=== PATIENT | male | born 1975 | race Caucasian/White ===

== ENCOUNTER 2018-02-08 18:41 | Emergency (ER) | payer BC ==
[~2018-02-08] VITALS: Ht 188 cm; Wt 76.7 kg
[~2018-02-08 18:41] MED LIST: NO HOME MEDS
[2018-02-08 18:48] VITALS: BP 127/87
[2018-02-08] MEDS ORDERED: PRED10TA PO (20:08)
[2018-02-08] MEDS ORDERED: methylPREDNISolone sod succ 125mg/2ml vial IV ONE (20:10)
== END 2018-02-08 20:33 | disposition home or self-care (01) ==
LOC: ER 20:24
DX: S60.561A Insect bite (nonvenomous) of right hand, initial encounter (principal); W57.XXXA Bitten or stung by nonvenomous insect and other nonvenomous arthropods, initial encounter; Y93.89 Activity, other specified; Y92.89 Other specified places as the place of occurrence of the external cause; Y99.8 Other external cause status
CPT/HCPCS: 96374; 99284; J2930

== ENCOUNTER 2024-06-20 09:48 | Outpatient (CLI) | payer BC ==
[~2024-06-20 09:48] MED LIST changes: +PRED10TA PO
== END 2024-06-20 23:59 | disposition home or self-care (01) ==
LOC: MRI02 09:48
PROVIDERS: ATTEND Orthopaedic Surgery
DX: M19.011 Primary osteoarthritis, right shoulder (principal); M25.411 Effusion, right shoulder; M75.121 Complete rotator cuff tear or rupture of right shoulder, not specified as traumatic; M25.511 Pain in right shoulder
CPT/HCPCS: 73221

== ENCOUNTER 2025-04-11 17:30 | Inpatient (IN) | payer BC ==
[~2025-04-11] VITALS: Ht 188 cm; Wt 97.7 kg
[2025-04-11] MEDS: normal saline 1000ML IV soln IVB ONE (17:55)
[2025-04-11 17:57] LABS: MEAN PLATELET VOLUME 8.0 FL (7.4-10.4); RED CELL DISTRIBUTION WIDTH 13.4 % (11.5-14.5)
[2025-04-11] MEDS: metoprolol tartrate 1mg/ml inj IV SCH (17:59)
[2025-04-11] MEDS: MIDAZolam 5mg/ml 2ml vial IV ONE (18:02)
--- NOTE | 2025-04-11 18:03 | Physician Documentation ---
History of Present Illness General Chief Complaint: Seizure Stated Complaint: SEIZURE Time Seen by MD: 17:42 OK to notify your PCP?: No Source: patient, family, EMS, RN notes reviewed Mode of Arrival: EMS Exam Limitations: no limitations History of Present Illness Initial Comments 49-year-old male, with no significant past medical history, presents via EMS after a possible seizure, as well as rapid heart rate. Patient reportedly came home from work this afternoon and told his that he is was not feeling well so he lied down in bed. Patient then reportedly had an approximate 1 minute seizure and was incontinent of urine during this. He has no history of seizures in the past. EMS was called and upon their arrival they noted patient to be in atrial fibrillation with a RVR, with a rate in the 160s. Patient denies any chest pain or shortness of breath. He reportedly has a few alcoholic drinks daily, and had one drink prior to lying down this afternoon. He denies history of alcohol withdrawal. Medication Reconciliation Allergies: Coded Allergies: No Known Allergies (Unverified , 11/14/15) Scheduled Folic Acid* (Folic Acid*), 1 MG PO DAILY Magnesium Oxide (Magnesium), 400 MG PO BID Metoprolol Succinate (Metoprolol Succinate), 50 MG PO DAILY Multivitamin (Multivitamin), 1 TAB PO DAILY Potassium Chloride* (K-Dur*), 1 TAB PO DAILY Thiamine HCl (Thiamine HCl), 500 MG PO DAILY Miscellaneous Medications Home Med List (No Home Medications), (Reported) Discontinued Medications Prednisone (Prednisone), 0 PO DAILY Discontinued Reason: patient no longer taking Past Medical History Past Medical History: No Pertinent History Past Surgical History: orthopedic surgeries Alcohol Use: Heavy Drug Use: none Lives with: Spouse Lives In: Home Occupation: employed Review of Systems All Other Systems at this time: Reviewed and Negative ROS As stated above in the HPI, otherwise all systems are reviewed and negative. Physical Exam Physical Exam Vital Signs: RN Vital Signs have been reviewed: Yes, Temperature: 100.5, Source: Oral, Heart Rate: 156, Respiratory Rate: 22, BP: 121/81, Pulse Oximetry: 98, Weight: 91.000 Pulse Oximetry Reflects: adequate oxygenation Physical Exam VITALS: Reviewed and as above. GENERAL: Alert, mild distress. HEENT: Normocephalic, atraumatic, PERRL, EOMI, dry mucosa RESPIRATORY: Lungs clear, normal breath sounds, no respiratory distress. CHEST: No accessory muscle use, no retractions CV: Irregularly irregular rhythm, tachycardic, no edema, no murmur, No: JVD GI: Soft, non-tender, bowels sounds present, no rebound, guarding, or rigidity MUSCULOSKELETAL: No deformities, no edema SKIN: Pale, slightly diaphoretic. Warm and dry, no rash NEURO: Oriented x4, No motor or sensory deficit. Tremulous. PSYCH: Normal mood and affect, no agitation Progress Progress Note 1809: Care passed to oncoming physician, Dr. Young. Results/Orders Reviewed/noted all lab results: Yes Results/Orders Orders - OHKD BROWN MD Chest,Single View (04/11/25 17:56) Saline Lock (04/11/25 17:49) Monitor (04/11/25 17:49) Oxygen (04/11/25 17:49) Ct Head (04/11/25 18:23) Completed Orders - KD WATKINS MD Cbc/Diff (04/11/25 17:49) MG (04/11/25 17:49) PBNP (04/11/25 17:49) Chest,Single View (04/11/25 17:56) BMP (04/11/25 17:49) Hs Troponin I W Calculations (04/11/25 17:49) Hs Troponin I W Calculations (04/11/25 19:49) Hs Troponin I W Calculations (04/11/25 20:49) Procalcitonin (04/11/25 17:49) Metoprolol Tartrate Inj (Lopressor Iv) (04/11/25 17:50) Midazolam 5 Mg/Ml 2ml Inj (Versed 5 Mg/M (04/11/25 17:50) Normal Saline 1000ml (0.9% Sodium Chlori (04/11/25 17:50) Potassium Cl Sr Tablet (K-Dur Tablet) (04/11/25 18:22) Ct Head (04/11/25 18:23) Magnesium Sulf-Water 2g/50ml (Magnesium (04/11/25 18:30) Ethanol (04/11/25 17:34) Liver Panel (04/11/25 17:34) Hgb A1c (04/11/25 17:34) PHOS (04/11/25 17:34) Laboratory Tests Test 04/11/25 17:34 04/11/25 19:10 04/11/25 20:41 04/11/25 20:47 White Blood Count 5.8 Red Blood Count 3.74 L Hemoglobin 12.8 L Hematocrit 38.7 L Mean Corpuscular Volume 103.5 H Mean Corpuscular Hemoglobin 34.3 H Mean Corpuscular Hemoglobin Concent 33.1 Red Cell Distribution Width 13.4 Platelet Count 186 Mean Platelet Volume 8.0 Neutrophils (%) (Auto) 65.4 Lymphocytes (%) (Auto) 22.5 Monocytes (%) (Auto) 10.7 Eosinophils (%) (Auto) 0.1 Basophils (%) (Auto) 1.3 H Neutrophils # (Auto) 3.8 Lymphocytes # (Auto) 1.3 Monocytes # (Auto) 0.6 Eosinophils # (Auto) 0.0 Basophils # (Auto) 0.1 CBC Comment Prothrombin Time 11.1 INR International Normalized Ratio 1.1 Activated Partial Thromboplast Time 28 Coagulation Comments Sodium Level 142 Potassium Level 3.6 Chloride Level 103 Carbon Dioxide Level 13.7 *L Anion Gap 25 H Blood Urea Nitrogen 8 Creatinine 1.01 Estimated GFR/1.73 m2 78 BUN/Creatinine Ratio 7.9 L Glucose Level 123 H Hemoglobin A1c 5.2 Lactic Acid Level 13.2 *H Calcium Level 8.5 Phosphorus Level 4.3 Magnesium Level 1.6 Total Bilirubin 0.7 Direct Bilirubin 0.2 Aspartate Amino Transf (AST/SGOT) 98 H Alanine Aminotransferase (ALT/SGPT) 73 Alkaline Phosphatase 78 Troponin I High Sensitivity 18 35 45 Pro-B-Type Natriuretic Peptide 41 Total Protein 7.7 Albumin 4.2 Globulin 3.5 Albumin/Globulin Ratio 1.2 Procalcitonin < 0.05 Chemistry Comments Ethyl Alcohol Level 20 H Troponin I High Sens Percent Delta 94 28 Troponin I Hi Sens Absolute Change 17 10 Urine Specimen Description Voided Urine Color Yellow Urine Clarity Clear Urine pH 6.0 Urine Specific [place] 1.025 Urine Protein Trace Urine Glucose (UA) Negative Urine Ketones 15 H Urine Occult Blood Trace-intact Urine Nitrite Negative Urine Bilirubin Negative Urine Urobilinogen 0.2 Urine Leukocyte Esterase Negative Urine RBC 0-2 Urine WBC 0-4 Urine Squamous Epithelial Cells Few Urine Bacteria None seen Urine Mucus Few Urine Culture Indicated Not ind Volume Urine Centrifuged 10 ml Urine Comment Total Creatine Kinase 781 H Myoglobin 433 H Microbiology Date/Time Source Procedure Growth Status 04/11/25 19:13 Blood Hand Left Blood Culture - Final NO GROWTH AFTER 5 DAYS Complete Re-Evaluation Re-Evaluation : Re-Evaluation: Improved Progress Alcohol withdrawal seizures. CT scan of the head was obtained and reassuring no masses or bleeds. X-ray showed no infiltrates effusions or aspiration. Patient received metoprolol Versed and fluid boluses later potassium was ordered. Magnesium as well. Patient received additional 3 L of fluids without any urine output lactic acid came back super high at 13. Additional L bolus was given at that point in time patient is now alert able to take oral medications. Patient received aspirin additional dose of Cardizem heart rate is back into the 120s blood pressure has improved patient was started on a Cardizem drip. Patient is CBC is reassuring with some borderline anemia with a hemoglobin of 12 and hematocrit of 38 with a MCV of 103.5 consistent with chronic alcohol abuse. CO2 is 13.7 otherwise chemistries are within normal limits. Patient's initial lactic acid is 13.2nd lactic acid with 3 L has been transfused 4 L is in progress and repeat lactic acid is pending. Otherwise magnesium is at 1.6 in his has been supplemented with 2 g. LFTs troponins all within normal limits. Patient was then discussed with the hospitalist who kindly agreed to admit the patient. Repeat lactic acid 1.5 Continuous clamshell operator interpretation shows rapid AFib heart rate 120s, abnormal, my interpretation. Pulse oximetry monitor interpretation shows normal oxygenation at 98% room air, normal, my interpretation. EKG/XRAY/CT/US/VASC/MRI EKG : Additional Comment 6008: EKG interpreted by myself to show atrial fibrillation with RVR at a rate of 159bpm. LAD, nonspecific ST changes. Chest X-Ray : Additional Comments CHEST RADIOGRAPH Indication: CP Technique: Single frontal view of the chest was obtained Comparison: None FINDINGS: Lines and Tubes: None Lungs: No focal consolidation. [id number] elevation of the right hemidiaphragm. Pleura: No effusion. No pneumothorax. Cardiomediastinal contours: Unremarkable Bones: No acute osseous abnormality. IMPRESSION: No acute cardiopulmonary disease. Electronically Signed by:LUCRECIA MCDONALD DO Date & Time: 04/11/[address] : Interpreted By: both CT: head With Contrast?: No Impression CLINICAL HISTORY: seizure TECHNIQUE: Helical scanning was performed of the head from the skull base to the vertex. Multiplanar reconstructions were performed. This exam was performed according to our departmental dose optimization program. Up-to-date CT equipment and radiation dose reduction techniques are utilized as appropriate. CTDI 67.2 DLP 1263.7 COMPARISON: None FINDINGS: There is no evidence for acute intracranial hemorrhage, acute ischemic changes, mass, mass effect, or extra-axial fluid collection. There is no hydrocephalus or midline shift. There is no effacement of the cerebral sulci and basal subarachnoid cisterns. The montes-white matter differentiation is well maintained. The imaged paranasal sinuses demonstrate mile mucosal thickening. IMPRESSION: NO ACUTE INTRACRANIAL ABNORMALITY SEEN. Electronically Signed by:GISELA VINCENT MD Date & Time: 04/11/25 1914 Medical Decision Making Additional info obtained from: old records Findings The patient is a 49-year-old male who presents with a seizure and rapid atrial fibrillation the patient is a heavy drinker and appears to be in alcohol withdrawal, the patient was treated for alcohol withdrawal and he was also treated for rapid atrial fibrillation the patient was given rate control agents. And benzodiazepines. The patient has remained hemodynamically stable. The patient has required critical care time. The patient will be admitted to the hospitalist for further evaluation of the seizure and for treatment of the atrial fibrillation. The patient's clamshell operator was interpreted as rapid atrial fibrillation. The patient's pulse oximetry was interpreted as normal and adequate. Prior hospitalizations have been reviewed. Departure Admitted to Inpatient Unit: yes, to hospitalist Admission Level of Care: PCU with Tele Impression: Primary Impression: Seizure disorder Additional Impressions: Alcohol withdrawal syndrome Qualified Codes: F10.939 - Alcohol use, unspecified with withdrawal, unspecified Atrial fibrillation with rapid ventricular response New onset a-fib Lactic acidosis Condition: Critical Prescriptions Magnesium Oxide (MAGNESIUM) 400 Mg Magnesium Capsule 400 MG PO BID, #60 CAP Prov: CASSIDY MCMAHON MD 04/13/25 Potassium Chloride* (K-Dur*) 20 Meq Tab.prt.sr 1 TAB PO DAILY, #15 TAB Prov: CASSIDY MCMAHON MD 04/13/25 Multivitamin (Multivitamin) 1 Each Tablet 1 TAB PO DAILY for 30 Days, #30 TAB 0 Refills Prov: HARMONY FOY, RES 04/13/25 Thiamine HCl (Thiamine HCl) 500 Mg Tablet 500 MG PO DAILY for 30 Days, #30 TAB Prov: HARMONY FOY, RES 04/13/25 Folic Acid* (Folic Acid*) Y Tab 1 MG PO DAILY for 30 Days, #30 TAB Prov: HARMONY FOY, RES 04/13/25 Metoprolol Succinate (Metoprolol Succinate) 25 Mg Tab.sr.24h 50 MG PO DAILY for 30 Days, #60 TAB.SR Prov: HARMONY FOY, RES 04/13/25 Education Educated: Patient, Family Educated regarding: diagnosis, treatment Critical Care Note Total Time (mins): 45 Critical Care Note Critical Care Time: 45 minutes Treatments/Evaluations: Close monitoring and treatment of unstable vital signs, cardiorespiratory, and neurologic status, while maintaining tight balance of fluid, respiratory, and cardiac interventions. This time includes discussing the case with the patient and the patient's family. This time does not include all procedures stated elsewhere in this record. This time also includes reviewing old records, labs and radiological studies. This time includes examining and re- examining the patient. Additionally, this time also includes arranging care with admitting and consulting physicians. Signature Scribe Signature: Scribed for OhlfsKd MD by Daniel Berumen . 04/11/25 18:04 Attestation: The note accurately reflects work and decisions made by me.Gabriel Young MD 04/11/25 20:42 OHLKD DE MD Apr 11, 2025 18:03 DANIEL TREJO Apr 11, 2025 18:06 GABRIEL YOUNG MD Apr 11, 2025 20:51
[2025-04-11 18:20] LABS: CREATININE 1.01 MG/DL (0.60-1.10); PRO BRAIN NATRIURETIC PEPTIDE 41 PG/ML (0-125); eCRCL 99 ML/MIN; eGFR 78 ML/MIN
--- NOTE | 2025-04-11 18:26 | RADIOLOGY REPORT ---
CHEST RADIOGRAPH Indication: CP Technique: Single frontal view of the chest was obtained Comparison: None FINDINGS: Lines and Tubes: None Lungs: No focal consolidation. [id number] elevation of the right hemidiaphragm. Pleura: No effusion. No pneumothorax. Cardiomediastinal contours: Unremarkable Bones: No acute osseous abnormality. IMPRESSION: No acute cardiopulmonary disease.
[2025-04-11 18:29] LABS: TOTAL CARBON DIOXIDE 13.7 MMOL/L (24-32)
[2025-04-11 18:54] LABS: ETHANOL 20 MG/DL (<10)
--- NOTE | 2025-04-11 19:17 | RADIOLOGY REPORT ---
CLINICAL HISTORY: seizure TECHNIQUE: Helical scanning was performed of the head from the skull base to the vertex. Multiplanar reconstructions were performed. This exam was performed according to our departmental dose optimizat ion program. Up-to-date CT equipment and radiation dose reduction techniques are utilized as appropri ate. CTDI 67.2 DLP 1263.7 COMPARISON: None FINDINGS: There is no evidence for acute intracranial hemorrhage, acute ischemic changes, mass, mass effect, or extra-axial fluid collection. There is no hydrocephalus or midline shift. There is no effacement of the cerebral sulci and basal subarachnoid cisterns. The montes-white matter differentiation is well didier ntained. The imaged paranasal sinuses demonstrate mile mucosal thickening. IMPRESSION: NO ACUTE INTRACRANIAL ABNORMALITY SEEN.
[2025-04-11] MEDS: magnesium sulf-water 2g/50mL 50 ML IV ONE (20:11)
[2025-04-11] MEDS: normal saline 1000ml 3,000 ML IV ONE (20:15)
[2025-04-11] MEDS ORDERED: diltiazem-NS 100mg/100ml 100 ML IV PRN (20:45)
[2025-04-11] MEDS ORDERED: metoprolol tartrate 1mg/ml inj IV ONE (20:45)
[2025-04-11 20:58] LABS: APTT 28 SECONDS (22-32); INR 1.1 INR
[2025-04-11 21:08] LABS: NITRITES, URINE NEGATIVE (Neg); OCCULT BLOOD,URINE TRACE-INTACT (Neg)
[2025-04-11 21:09] LABS: LEUKOCYTE ESTERASE ,URINE NEGATIVE (Neg)
[2025-04-11 21:14] LABS: UA COLLECTION TYPE VOIDED
[2025-04-11 21:15] LABS: MUCUS STRANDS FEW /LPF (Neg); SQUAMOUS EPITHELIAL CELL,UR FEW /LPF (FEW)
[2025-04-11] MEDS ORDERED: sodium bicarbonate (8.4%) inj. 100 MEQ in dextrose 5%-water 1,000 ML IV SCH (21:20)
[2025-04-11] MEDS ORDERED: magnesium hydroxide 30ml (MOM) UD suspension PO PRN (21:25)
[2025-04-11] MEDS ORDERED: magnesium Cl slow-release 64mg tablet PO PRN (21:25)
[2025-04-11] MEDS ORDERED: dextrose 50%-water 50ml dispensing syringe IV PRN (21:25)
[2025-04-11] MEDS ORDERED: magnesium sulf-water 2g/50mL 50 ML IV PRN (21:25)
[2025-04-11] MEDS ORDERED: potassium Cl 40MEQ/1/2NS 520ml 520 ML IV PRN (21:25)
[2025-04-11] MEDS ORDERED: ondansetron/PF 4mg/2ml inj IV PRN (21:25)
[2025-04-11] MEDS ORDERED: potassium Cl 20 mEq SR tablet PO PRN (21:25)
[2025-04-11] MEDS ORDERED: mag hydrox/Alum hydrox/simeth 30ml oral suspension PO PRN (21:25)
[2025-04-11] MEDS ORDERED: haloperidol lactate 5mg/ml inj IM PRN (21:25)
[2025-04-11] MEDS ORDERED: magnesium sulf-water 4G/100mL 100 ML IV PRN (21:25)
--- NOTE | 2025-04-11 21:51 | HISTORY AND PHYSICAL-Residence ---
History & Physical Providers to CC Resident Creating Document: PHIL LEVY, LUDWIN ~ History of Present Illness Reason for Admit\Complaint: Seizures, AFib with RVR History of Present Illness 49 years old male with history of seasonal allergies was brought to the ER after his witnessed an episode of seizures at home in the patient was taking a nap. The patient reported that he rode his bike today to work and on the way back he felt very warm and tired. He reports that he had an episode of vomiting at work and one more episode of vomiting when he came back home. He took a nap at home during which his noticed the patient having violent shaking of his body which lasted for 1 minute associated with ALOC. The also reported that the patient was not able to speak or regain complete consciousness for approximately 5 minutes after the violent shaking stopped and hence she called the EMS. The patient reported that he has never had these kind of symptoms before. He reports that he drinks approximately 350 mL of alcohol/vodka every day after work. He had a drink today prior to coming back home from work. Patient denied any history of alcohol withdrawals in the past. Per the when the EMS came to home the patient's heart rate was in the 160s to 200s and the EMS also reported the patient was in AFib with RVR. In the ER the patient was treated with a two doses of IV metoprolol for new onset AFib with a RVR. The patient denied any recent weight loss, headaches, dizziness, chest pain, shortness of breath, palpitations, abdominal pain, diarrhea. PCP-does not have a PCP. Code status-full code Allergies: Coded Allergies: No Known Allergies (Unverified , 11/14/15) Home Medications Home Medications Active Prednisone (Prednisone) 10 Mg Tablet 0 PO DAILY Take 4 tabs daily x4 days, then 3 daily x4 days 2 daily x4 days 1 daily x4 days 1/2 daily x4 days then STOP Reported No Home Medications (Home Med List) Each Past Medical History Past Medical History Seasonal allergies, takes Zyrtec daily Past Surgical History Surgical History Comment Bilateral shoulder surgeries. In rotator cuff surgery on the right shoulder in August 2024. 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 Drinks alcohol every day. 350 mL of alcohol/vodka or more every day. Denies smoking or recreational drug use. Alcohol Use: Heavy Drug Use: None Lives with: Spouse Lives In: Home Occupation: employed ROS All Other Systems: Reviewed and Negative ROS As stated above in the HPI, otherwise all systems are reviewed and negative. Exam Vitals: Vital Signs Date Time Temp Pulse Resp B/P (MAP) Pulse Ox O2 Delivery O2 Flow Rate FiO2 04/11/25 20:02 98.1 101 19 123/69 (87) 98 General: General: Awake and Alert, no acute distress. HEENT: Conjunctiva pink, Sclera clear, Mucus Membranes moist. Neck: Supple without masses and tenderness. Resp: Unlabored. Lungs clear to auscultation bilaterally. Heart: Tachycardic, irregularly irregular rate and rhythm. No murmurs or rubs heard. Abdomen: Soft and non tender no organomegaly Extremities: No cyanosis,clubbing or edema. Skin: Warm and Dry. Neurology: Cranial nerves 2-12 intact. No focal sensory or motor deficits. Musculoskeletal: No no restricted range of motions. No deformities noted. Diagnostic Data Last Recorded Lab Results: 04/11/25 1734 04/11/25 1734 Diagnostic Data: Laboratory Tests Test 04/11/25 17:34 Prothrombin Time 11.1 SECONDS (9.0-12.0) INR International Normalized Ratio 1.1 INR Activated Partial Thromboplast Time 28 SECONDS (22-32) Coagulation Comments Advance Care Planning Advanced Care planning: Add on additional 30 min Additional Plan Seizures Possibly underlying heat stroke versus alcohol withdrawal seizures The patient reported that he has been working under the sun for the last three days and also reports that he went out on his bike today after which he was feeling very warm and weak. He also has a history of heavy alcohol use and reports that he had one drink today afternoon. The patient had an episode of generalized seizure that lasted for a minute. In the ER the patient received one dose of IV magnesium and one dose of IV midazolam. The patient currently does not have any confusion or any other neurological deficits. CT scan of the head was done which does not show any acute intracranial abnormalities. The patient has significantly elevated lactic acid of 13.2 maybe secondary to seizures. We will continue to monitor. Tele neurology consultation has been requested. We will follow up according to their recommendations. Follow up with the EEG tomorrow morning. Continue supportive care and close monitoring. We will use IV Ativan if needed for recurrent seizures. New onset atrial fibrillation with rapid ventricular rate EKG at the time of presentation shows AFib with heart rate of 159 beats per minute. The patient received two doses of IV metoprolol in the ER. Restarted the patient on IV diltiazem 10 mg once followed by IV diltiazem drip. Chads two Vasc score 0. Continue telemetry monitoring. Follow up with the echocardiography. Increased anion gap metabolic acidosis Lactic acidosis Most likely secondary to seizures. Patient has a lactic acid of 13.2. Bicarb level is 13.7. Started the patient on IV bicarb drip. Continue to monitor the patient's electrolytes closely. The patient also has a elevated creatinine phosphokinase of 781. Alcohol use disorder No history of alcohol withdrawals. Started the patient on IV thiamine, folic acid and oral multivitamin. Substance abuse navigator and social worker school consultation. Follow up with the vitamin B12. IV Ativan/IM haloperidol as per the protocol for agitation and anxiety. Macrocytic anemia Most likely secondary to alcohol use disorder leading to nutritional deficiencies. Follow up with the vitamin B12 levels. Started the patient on multivitamin supplementation. CODE STATUS: Full code DVT prophylaxis: Heparin 5000 units subQ b.i.d. GI prophylaxis: P.o. Protonix Diet: Regular Disposition: Continue medical management. Awaiting tele neuro consultation and recommendations. Follow up with the EEG tomorrow. Phil Levy MD Internal Medicine Resident, PGY-3 Plan reviewed with bedside team. Patient seen through remote audiovisual assessment through HIPAA compliant setup. All labs, flowsheets, and images reviewed Cumulative nonprocedural care time spent in directed patient care = 60 min Date of Service: Apr 11, 2025 Billing Provider: YOSEPH METZ MD, SURYA PRATIK, RES Apr 11, 2025 21:51 YOSEPH METZ MD Apr 12, 2025 06:27
[2025-04-11 21:58] LABS: PHOSPHORUS 4.3 MG/DL (2.3-4.5)
[2025-04-11] MEDS: potassium Cl 20 mEq SR tablet PO STA (22:16)
[2025-04-11 22:42] VITALS: BP 131/90; PULSE 104; RESP 13; TEMP 98.2; O2SAT 98
[2025-04-11 22:45] VITALS: RESP 13; O2SAT 98
[2025-04-11] MEDS: diltiazem 5mg/ml 5ml inj. IV ONE (22:46)
[2025-04-11] MEDS: SODIUM BICARBONATE 150MEQ IN D5W 1,000 ML IV SCH (23:06)
[2025-04-12] VITALS (8 sets, daily range): BP systolic 114–156; BP diastolic 71–94; PULSE 67–87; RESP 16–21; TEMP 98.1–99.1; O2SAT 95–98
--- NOTE | 2025-04-12 00:23 | [facility] CONSULT REPORT ---
[facility] Procedure Note [facility] Procedure Note Consult [facility] Note # Demographics Consult Type: General Neurology Patient Location: Inpatient First Name: Edin Last Name: Cristino Date of : 1975 Age: 49 Gender: Male Facility: [facility] Time of Initial Page (): 04/12/2025 00:07 First Contact with Site (): 04/12/2025 00:08 # HPI Chief Complaint: - seizure History: 49 yo M p/w an episode of seizure like activities. He was taking a nap and started violent generalized convulsion. It was witnessed by his . It lasted about 1 min and was still non-coherent when EMS arrived. He denied tongue biting or urinary incontinence, but did vomit after he woke up. He never had seizure before. He drinks Vodka daily but never had withdrawal symptoms or withdrawal seizures, last drink today. # Exam Mental Status: - awake - alert and oriented x 3 - follows commands Language: - normal speech - no aphasia - no dysarthria Cranial Nerves: - extra ocular movements intact - no facial droop - normal facial sensation Motor: - normal strength - normal bulk - no drift Sensory: - normal sensation Cerebellar: - normal cerebellar exam # ROS Additional: - complete review of systems otherwise negative # Data Head CT: - no bleed # Assessment Impression: - Seizure-like Activity # Plan Imaging: (urgency: routine): - MRI Brain with AND without contrast Diagnostic Test: - EEG Other: - If patient has any neurological deterioration please call me back immediately - telemetry monitoring - seizure precautions - neurology referral as outpatient # Logistics Attestation of consult completion: The patient is located at: [facility]. Facility staff participated in the visit. I performed this telemedicine visit from my offsite office utilizing interactive 2 way audio and visual telecommunication technology at the request of the onsite inpatient provider. Total time spent in telemedicine encounter: I spent 15 minutes reviewing clinical data and/or imaging, obtaining history, examining the patient, communicating with the onsite care team, and in preparation of this report. # Demographics First Name: Edin Last Name: Cristino Facility: [facility] Electronically signed at 04/12/2025 00:22 () by Kingston Hopper MD Neuro Consult Order placed for: Yes KINGSTON HOPPER MD Apr 12, 2025 00:23
--- NOTE | 2025-04-12 02:34 | ELECTROCARDIOGRAPH REPORT ---
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 ALEXANDR Breen Measurements Intervals [place] Rate: 87 P: 64 [place]: 159 QRS: -13 QRSD: 96 T: 2 QT: 437 QTc: 526 Interpretive Statements Sinus rhythm Atrial premature complex Borderline low voltage, extremity leads Prolonged QT interval Electronically Signed On 04-12-2025 18:02:[address] ALEXANDR Breen Please click the below link to view image of tracing.
--- NOTE | 2025-04-12 02:37 | ELECTROCARDIOGRAPH REPORT ---
[facility] Test Date: 2025-04-12 Test Time: 02:35:01 Pat Name: LYDIA IRVING Department: 3rd FLOOR PCU Room: [facility] [address] Gender: M Lapeler: : 1975 Requested By: RAF CAMARILLO Order Number: [id number] Reading MD: Dr. ALEXANDR Breen Measurements Intervals [place] Rate: 90 P: 65 [place]: 158 QRS: -15 QRSD: 97 T: 3 QT: 369 QTc: 452 Interpretive Statements Sinus rhythm Borderline left axis deviation Borderline low voltage, extremity leads Electronically Signed On 04-12-2025 18:02:[address] ALEXANDR Breen Please click the below link to view image of tracing.
[2025-04-12 02:56] LABS: MEAN PLATELET VOLUME 8.0 FL (7.4-10.4); RED CELL DISTRIBUTION WIDTH 13.2 % (11.5-14.5)
[2025-04-12 03:07] LABS: CREATININE 1.12 MG/DL (0.60-1.10); TOTAL CARBON DIOXIDE 17.2 MMOL/L (24-32); eCRCL 92 ML/MIN; eGFR 69 ML/MIN
[2025-04-12] MEDS: levetiracetam-NACL1000mg/100ml 100 ML IV ONE (03:32)
[2025-04-12] MEDS: Levetiracetam-NACL 500mg/100ml 100 ML IV ONE ×2 (04:41→04:42)
[2025-04-12] MEDS: potassium Cl 20 mEq SR tablet PO PRN (04:42)
[2025-04-12] MEDS: thiamine 100mg/ml 2ml inj. IV SCH (08:22)
[2025-04-12] MEDS: heparin, porcine 5000 units/ml vial SQ SCH (08:23)
[2025-04-12] MEDS: folic acid 1mg/0.2ml inj IV SCH (08:23)
[2025-04-12] MEDS: pantoprazole 40mg Tablet.DR PO SCH (08:23)
[2025-04-12] MEDS: docusate sod 100mg capsule PO SCH (08:24)
[2025-04-12] MEDS: K and/or MAG REPLACEMENT MC SCH (08:36)
[2025-04-12] MEDS: Levetiracetam-NACL 500mg/100ml 100 ML IV SCH (10:47)
[2025-04-12] MEDS ORDERED: diltiazem CD 180mg cap (once-daily) PO ONE (11:20)
--- NOTE | 2025-04-12 11:43 | PROCEDURE NOTE ---
Procedure Note Providers to CC ~ Interpretation: Barry EEG Note # Demographics Type of EEG Read: - Routine EEG - video Patient Location: Inpatient First Name: Edin Last Name: Cristino Date of : 1975 Age: 49 Gender: Male Facility: [facility] Time of Initial Page (): 04/12/2025 08:22 First Contact with Site ( Time): 04/12/2025 09:02 # EEG Interpretation Start Time of EEG Read (): 04/12/2025 08:48 Stop Time of EEG Read (): 04/12/2025 09:08 Duration: 0h 20m Technical Details: - The EEG electrodes were placed using the standard International 10-20 system of electrode placement. Video and an accessory EKG lead were used during the course of this study. - This study was recorded using the [employer] EEG software Indication: - seizure # Description Photic Stimulation: NOT Performed Hyperventilation: NOT performed Phases Captured: - drowsy - sleep Symmetry: symmetric Posterior Dominant Rhythm: absent Predominant Frequencies: - posterior dominant alpha (8-12 Hz) - abundant (50-89%) Superimposed Frequencies: - beta (4-7 Hz) - occasional Amplitude: normal Reactivity: yes Variability: yes Continuity: continuous # Abnormalities Epileptiform Abnormalities: - NOT present Focal Slowing: no Seizure: - NOT present # Impression Impression: normal # Clinical Correlation Clinical Correlation: This is a normal EEG in the drowsy and sleep states. No epileptiform discharges or lateralizing signs were seen. # Logistics Telemedicine: remote EEG review: EEG reviewed remotely # Demographics First Name: Edin Last Name: Cristino Facility: [facility] FREDDIE MORALES MD Apr 12, 2025 11:43
[2025-04-12] MEDS: metoprolol succinate 25mg (24-HOUR) SR. Tablet PO SCH (12:29)
[2025-04-12] MEDS ORDERED: sodium bicarbonate 1meq/ml inj 150 ML in dextrose 5%-water 1,000 ML IV SCH (12:50)
[2025-04-12] MEDS: GADOTERATE MEGLUMINE 7.5 MMOL/15 ML VIAL IV ONE (14:00)
--- NOTE | 2025-04-12 14:41 | RADIOLOGY REPORT ---
CLINICAL HISTORY: Seizures TECHNIQUE: Routine multiplanar imaging of the brain was performed with and without IV contrast. COMPARISON: CT CT HEAD on DOS: 04/11/25 FINDINGS: There is no abnormal restricted diffusion to suggest acute infarction. There is mild brain volume loss. There are no significant chronic small vessel ischemic foci. There is no definite evidence for cortical dysplasia or very matter heterotopia. No abnormal hippocam pal signal is seen. There is no evidence for acute ischemic changes, mass, mass effect, or extra-axial fluid collection. There is no hydrocephalus or midline shift. The cerebral sulci and subarachnoid cisterns are not effa rosey. The imaged paranasal sinuses demonstrate minimal scattered mucoperiosteal thickening. The globes are intact. The midline structures, including the corpus callosum, are unremarkable. The intracranial flow voids are maintained. There is no abnormal postcontrast enhancement. IMPRESSION: No acute intracranial abnormality seen. No evidence for acute infarct.
--- NOTE | 2025-04-12 16:58 | PROGRESS NOTE- Residence ---
Progress Note - Resident Providers to CC Resident Creating Document: HARMONY FOY, LUDWIN CC: CASSIDY MCMAHON MD ~ Antibiotic Timeout Antibiotic Ordered?: No Subjective Patient is seen and examined at bedside. Patient's was at bedside who is providing most of the history. stated that patient was consuming heavy alcohol since the time of his father's two years ago. Patient did not have any episodes of seizures or vomitings after the one in the ED. Objective Vital Signs Date Time Temp Pulse Resp B/P (MAP) Pulse Ox O2 Delivery O2 Flow Rate FiO2 04/12/25 11:00 99.1 73 17 121/85 (97) 95 Room Air Result Diagram: 04/12/25 0238 04/12/25 0238 General: Moderately built middle-aged man, Alert, awake, oriented, not in acute distress HEENT: PERRLA, no icterus, pallor, lymphadenopathy, carotid bruit Respiratory system: Bilateral vesicular breath sounds heard, no adventitious breath sounds CVS: S1-S2 heard, no murmurs/rubs/gallop GI: Generalized distention of the abdomen (obese): Soft, nontender, no organomegaly, no guarding/rigidity, bowel sounds present Neuro: No focal neurological deficits present Musculoskeletal: Bilateral surgical scars present on shoulders Extremities: Bilateral fine tremors present on extension of both upper extremities, No edema cyanosis clubbing/deformities Skin: Warm and dry, small ulcers that healing stages present in the forehead Coagulation Studies Laboratory Tests Test 04/11/25 17:34 Prothrombin Time 11.1 SECONDS (9.0-12.0) INR International Normalized Ratio 1.1 INR Activated Partial Thromboplast Time 28 SECONDS (22-32) Coagulation Comments Assessment Assessment A 49-year-old male with PMH of alcohol use disorder presented to the ED after an episode of seizures. Patient consumed alcohol on 04/10/2025. Patient is admitted for the evaluation management of seizures secondary to alcohol consumption. Plan Plan Seizures, most likely alcohol withdrawal Can not exclude underlying heat exhaustion Alcohol use disorder MRI brain: No acute intracranial abnormality seen. No evidence for acute infarct. Tele neurology recommended MRI brain, phototypesetting equipment monitor. Appreciate recommendations Elevated alcohol concentration EEG: Did not reveal any seizure activity Patient received one dose of IV Keppra 1500 mg, followed by 500 mg b.i.d. Continue supportive care and close monitoring. We will use IV Ativan if needed for recurrent seizures. New onset AFib, rate controlled [id number]: 0 Patient continues to be in AFib, on telemetry Patient is rate controlled with a one dose of IV diltiazem 10 mg, was not started on IV diltiazem drip Continue telemetry monitoring. Patient is started on metoprolol succinate 50 mg once daily Echo: EF: 55%, RVSP: 35 mmHg. High anion gap metabolic acidosis, improving Lactic acidosis, resolved Most likely secondary to seizures. Improving bicarb level Continue IV bicarb drip at 150 cc/hour Prerenal GREGORIO probably secondary to renal tubular stasis Elevated Creatinine phosphokinase Follow up with creatinine phosphokinase daily Elevated creatinine Continue to monitor BMP Alcohol use disorder Continue IV thiamine, folic acid and oral multivitamin. Substance abuse navigator and social media editor consultation. Follow up with the vitamin B12. IV Ativan/IM haloperidol as per the protocol for agitation and anxiety. Macrocytic anemia 2/2 AUD Follow up with the vitamin B12 levels. Continue multivitamin supplementation. CODE STATUS: Full code DVT prophylaxis: Heparin 5000 units Diet: Regular Disposition: Continue medical management. Most likely discharge in a day or two Harmony Foy MD Internal Medicine, PGY 2 Date of Service: Apr 12, 2025 Billing Provider: CASSIDY MCMAHON MD,HARMONY, RES Apr 12, 2025 16:57
--- NOTE | 2025-04-12 19:27 | CARDIOLOGY REPORT ---
APPROVED REPORT EXAM: Comprehensive 2D, Doppler, and color-flow Echocardiogram. Patient Location: [facility] Blood Pressure: 131/90 mmHg Heart Rate: 63 bpm Rhythm: NSR Indications Arrhythmia AFIB No yarder No previous echo 2D Dimensions LA Diam4.9 cm IVSd 1.5 (0.7-1.1cm) LVDd 5.0 cm PWd 1.2 (0.7-1.1cm) IVSs 2.0 (0.8-1.2cm) LVDs 3.4 (2.5-4.0cm) Aortic Root(2D) 3.1 cm PWs 1.4 (0.8-1.2cm) LVOT Diameter 2.41 (1.8-2.4cm) LVEF(%) 61.4 (>50%) Ao Asc Diam.3.72 cmIVC 17.34 mm FS (%) 33.1 % SV 73.2 ml CO 4.8 L/min M-Mode Dimensions MV EPSS 1.0 (<0.5cm) Aortic Valve AoV Peak Ammon. 143.7 cm/s AoV VTI 29.3 cm AO Peak GR. 8.3 mmHg AO Mean GR. 5 mmHg LVOT VTI 22.70 cm LVOT Peak Ammon. 117.2 cm/s SUNDEEP(VTI)/BSA 3.52 cm2/m2 SUNDEEP (VTI) 3.52 cm2 Mitral Valve MV E Velocity 65.8 cm/s MV Peak Gr. 2 mmHg MV DECEL TIME 256 ms MV A Velocity 73.3 cm/s MV PHT 60 ms E/A Ratio 0.9 MVA (PHT) 3.67 cm2 MV VMax74.9 cm/s TDI Medial E' P. V 9.74 cm/s E/Medial E' 6.8 Tricuspid Valve TR P. Velocity 250 cm/s RAP ESTIMATE 10 mmHg TR Peak Gr. 25 mmHg RVSP 35 mmHg Pulmonary Vein S1 Velocity 50.1 cm/s D2 Velocity 31.4 cm/s PVa Nlaqjvss49.7 cm/s PVa [id number] msec LEFT VENTRICLE LV is normal in size with mild to moderate concentric hypertrophy. Overall systolic function is omero l. LVEF is 55%. RIGHT VENTRICLE RV appears mildly dilated with normal contractility. RVSP is estimated at 35 mmHG. ATRIA Left atrium is moderately dilated. AORTIC VALVE Trileaflet AV appears sclerotic without stenosis. Trace insufficiency. MITRAL VALVE MV is thickened with mild annular calcification and no stenosis. Trace mitral regurgitation. TRICUSPID VALVE The tricuspid valve is normal in structure. Trace tricuspid regurgitation. PULMONIC VALVE The pulmonary valve is normal in structure. Trace pulmonic regurgitation. GREAT VESSELS The aortic root is normal in size. The IVC is normal in size and collapses >50% with inspiration. PERICARDIUM There is no pericardial effusion. Other Information Study Quality: Adequate
[2025-04-12] MEDS: diazepam inj 5 MG/ML inj. IV PRN (23:17)
[2025-04-13 02:00] VITALS: BP 132/85; PULSE 78; RESP 21; TEMP 98.9; O2SAT 99
[2025-04-13 06:00] VITALS: BP 136/87; PULSE 91; RESP 22; TEMP 98.6; O2SAT 95
[2025-04-13 07:35] LABS: MEAN PLATELET VOLUME 8.7 FL (7.4-10.4); RED CELL DISTRIBUTION WIDTH 13.1 % (11.5-14.5)
[2025-04-13 08:00] VITALS: RESP 20; O2SAT 91
[2025-04-13 08:03] LABS: CREATININE 0.77 MG/DL (0.60-1.10); TOTAL CARBON DIOXIDE 27.9 MMOL/L (24-32); eCRCL 133 ML/MIN; eGFR > 90 ML/MIN
[2025-04-13] MEDS: metoprolol succinate 25mg (24-HOUR) SR. Tablet PO SCH (10:00)
--- NOTE | 2025-04-13 11:16 | ELECTROCARDIOGRAPH REPORT ---
[facility] Test Date: 2025-04-11 Test Time: 17:32:15 Pat Name: LYDIA IRVING Department: EMERGENCY ROOM Room: [place] [address] A Gender: M Polysom Tech: GABRIEL : 1975 Requested By: DEPARTMENT EMERGENCY Order Number: [id number] Reading MD: Measurements Intervals [place] Rate: 159 P: 0 VA: 0 QRS: -17 QRSD: 89 T: 15 QT: 292 QTc: 476 Interpretive Statements Atrial fibrillation Borderline left axis deviation Borderline low voltage, extremity leads Borderline ST depression, anterior leads Please click the below link to view image of tracing.
[2025-04-13 11:25] VITALS: BP 127/63; PULSE 90; RESP 18; TEMP 97.8; O2SAT 97
[2025-04-13] MEDS ORDERED: METO-395 PO (11:46)
[2025-04-13] MEDS ORDERED: FOLI1TAB27 PO (11:46)
[2025-04-13] MEDS ORDERED: MULT-1249 PO (11:46)
[2025-04-13] MEDS ORDERED: THIA500T PO (11:46)
[2025-04-13] MEDS ORDERED: MAGN400C PO (12:32)
[2025-04-13] MEDS ORDERED: POTA-207 PO (12:32)
[2025-04-13] MEDS: potassium Cl 20 mEq SR tablet PO STA (12:54)
--- NOTE | 2025-04-13 17:57 | DISCHARGE SUMMARY-Residence ---
Discharge Summary Providers to CC Resident Creating Document: HARMONY FOY, RES CC: CASSIDY MCMAHON MD ~ Discharge Summary Admission Diagnosis: Afib RVR, Seizures Hospital Course DATE OF ADMISSION: 04/11/25 DATE OF DISCHARGE: 04/13/25 Discharge Diagnosis\Comment: Alcohol withdrawal seizures Can not exclude underlying heat exhaustion Alcohol use disorder New onset AFib, rate controlled High anion gap metabolic acidosis, improving Lactic acidosis, resolved Prerenal GREGORIO probably secondary to renal tubular stasis, improving Elevated creatinine phosphokinase, downtrending Macrocytic anemia secondary to alcohol use disorder Operations\Procedures: None Consultants: Tele neurology Complications: None Condition on DC: Stable New Medications: Magnesium Oxide (Magnesium) 400 Mg Magnesium Capsule 400 MG PO BID, #60 CAP Multivitamin (Multivitamin) 1 Each Tablet 1 TAB PO DAILY for 30 Days, #30 TAB 0 Refills Potassium Chloride* (K-Dur*) 20 Meq Tab.prt.sr 1 TAB PO DAILY, #15 TAB Folic Acid* (Folic Acid*) Y Tab 1 MG PO DAILY for 30 Days, #30 TAB Metoprolol Succinate (Metoprolol Succinate) 25 Mg Tab.sr.24h 50 MG PO DAILY for 30 Days, #60 TAB.SR Thiamine HCl (Thiamine HCl) 500 Mg Tablet 500 MG PO DAILY for 30 Days, #30 TAB Continued Medications: Home Med List (No Home Medications) Each Discharge Summary: A 49-year-old male with PMH of alcohol use disorder presented to the ED in view of nausea vomitings and two seizure episodes witnessed by the . 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 After coming to the ED patient had metabolic acidosis with high anion gap, elevated lactic acid requiring IV fluid resuscitation. Tele neurology was consulted who recommended MRI brain and echo. CT head at the time of admission was negative. Patient was started on IV fluid resuscitation which improved with a lactic acid and gradually improved metabolic acidosis. EEG done at this time was negative for any seizures. Patient had one episode of seizures in the hospital requiring one doses each of IV Ativan and IV magnesium. Since the patient had one more attack in the ED, patient received 1500 mg of Keppra and given two days of Keppra 500 mg b.i.d.. At the time of admission to the ED, patient had AFib with RVR, rate was controlled with IV diltiazem 10 mg. Patient did not require diltiazem drip. Patient was transitioned to metoprolol succinate 50 mg once daily and sent home on the same medication with the same dosage. As the patient was mentally stable and seizure-free, patient is discharged home. Physical examination at discharge: General: Moderately built middle-aged man, Alert, awake, oriented, not in acute distress HEENT: PERRLA, no icterus, pallor, lymphadenopathy, carotid bruit Respiratory system: Bilateral vesicular breath sounds heard, no adventitious breath sounds CVS: S1-S2 heard, no murmurs/rubs/gallop GI: Generalized distention of the abdomen (obese): Soft, nontender, no organomegaly, no guarding/rigidity, bowel sounds present Neuro: No focal neurological deficits present Musculoskeletal: Bilateral surgical scars present on shoulders Extremities: Bilateral fine tremors present on extension of both upper extremities, No edema cyanosis clubbing/deformities Skin: Warm and dry, small ulcers that healing stages present in the forehead Labs at discharge: WBC: 4, H/H: 13.1/38.2, platelet count: 151 Sodium: 135, potassium: 3.3, BUN: Three, creatinine: 0.77 Imaging: Chest x-ray:No acute cardiopulmonary disease. Head CT: NO ACUTE INTRACRANIAL ABNORMALITY SEEN. Echo: LVEF is 55%.RVSP is estimated at 35 mmHG. Head MRI: No acute intracranial abnormality seen. No evidence for acute infarct. Discharge medications can be found above and patient is discharged home with the following recommendations: Follow up with primary care within two weeks of discharge. Strict avoidance of alcohol. Please utilize the resources for Alcohol anonymous groups or for quitting alcohol. Please follow up with burrer machine in view of new onset AFib. We are sending you home on metoprolol 50 mg. Based on your Vamshi Vasc score, we are not starting you on any anticoagulation. Return to ER in view of seizures, altered mental status, atrial fibrillation. *Problems/Diagnosis: (1) Alcohol withdrawal seizure (2) Lactic acidosis Status: Acute (3) Alcohol withdrawal syndrome Status: Acute (4) New onset a-fib Status: Acute Total Time Spent on D/C: > 30 Minutes Date of Service: Apr 13, 2025 Billing Provider: CASSIDY MCMAHON MD Problem Qualifiers (1) Alcohol withdrawal syndrome: Complication of substance-induced condition: with unspecified complication Qualified Codes: F10.939 - Alcohol use, unspecified with withdrawal, unspecified SUDDAHARMONY RENAE, RES Apr 13, 2025 17:57
== END 2025-04-13 14:18 | disposition home or self-care (01) | DRG 100 ==
LOC: ER 17:30 → ED HOLD 20:55 → PCU 3S 22:38
PROVIDERS: ADMIT Internal Medicine Sleep Medicine; ATTEND Family Medicine
PROC: 4A00X4Z Measurement of Central Nervous Electrical Activity, External Approach (ICD-10-PCS; principal; 2025-04-12)
DX: G40.509 Epileptic seizures related to external causes, not intractable, without status epilepticus (principal); N17.0 Acute kidney failure with tubular necrosis; F10.239 Alcohol dependence with withdrawal, unspecified; E87.20 Acidosis, unspecified; D53.9 Nutritional anemia, unspecified; T67.5XXA Heat exhaustion, unspecified, initial encounter; Z79.899 Other long term (current) drug therapy; I48.91 Unspecified atrial fibrillation; X30.XXXA Exposure to excessive natural heat, initial encounter; Y93.89 Activity, other specified; Y92.89 Other specified places as the place of occurrence of the external cause; Y99.8 Other external cause status
CPT/HCPCS: 36415; 70450; 70553; 71045; 80048; 80053; 80076; 80320; 81001; 82550; 82607; 83036; 83605; 83735; 83874; 83880; 84100; 84145; 84484; 85025; 85610; 85730; 87040; 87081; 93005; 93306; 94799; 95816; 96365; 96367; 96375; 99291; A4615; A6258; A6449; G0378; J1644; J1953; J2060; J2250; J3360; J3411; J3490; J7030; J7040; J7070

== ENCOUNTER 2025-05-26 07:10 | Day surgery (SDC) | payer BC ==
[2025-05-26] VITALS (7 sets, daily range): BP systolic 112–127; BP diastolic 77–87; PULSE 68–75; RESP 12–16; TEMP 98.5; O2SAT 97–100
[~2025-05-26] VITALS: Ht 182.9 cm; Wt 98.5 kg
[~2025-05-26 07:10] MED LIST changes: +CETI10CA19 PO; +CLON0.1T2 PO; +LORA-269 PO; +MAGN400T56 PO; +METO-395 PO; +NAPR220T67 PO; -NO HOME MEDS; +POTA-207 PO; -PRED10TA PO
[2025-05-26] MEDS: ringers solution, lacted 1,000 ML IV SCH (07:58)
[2025-05-26] MEDS ORDERED: fentaNYL/PF 50MCG/1 ML 2ML syringe ONE (09:44)
[2025-05-26] MEDS ORDERED: midazolam 1 mg/ML 2ml injection ONE (09:44)
[2025-05-26] MEDS ORDERED: propofol inj 20 ML IV ONE ×2 (09:46)
== END 2025-05-26 11:00 | disposition home or self-care (01) ==
LOC: GI LAB 07:10
PROVIDERS: ATTEND Internal Medicine Gastroenterology
DX: Z12.11 Encounter for screening for malignant neoplasm of colon (principal); K57.30 Diverticulosis of large intestine without perforation or abscess without bleeding; I10 Essential (primary) hypertension; I48.0 Paroxysmal atrial fibrillation; Z86.73 Personal history of transient ischemic attack (TIA), and cerebral infarction without residual deficits; Z79.899 Other long term (current) drug therapy; Z98.890 Other specified postprocedural states
CPT/HCPCS: 45378; J2250; J2704; J3010; J7120; Z7512; A4618; A4620